=== PATIENT | male | born 1950 | race Caucasian/White ===

== ENCOUNTER 2017-06-04 13:20 | Emergency (ER) | payer OTHER ==
[~2017-06-04] VITALS: Ht 177.8 cm; Wt 111.8 kg
[~2017-06-04 13:20] MED LIST changes: -OMEP20CA9 PO
[2017-06-04 13:28] VITALS: TEMP 36.7; Ht 177.8 cm; Wt 111.8 kg
[2017-06-04] MEDS ORDERED: OMEP20CA9 PO (13:53)
[2017-06-04 14:46] VITALS: BP 129/81; PULSE 75; O2SAT 95
--- NOTE | 2017-06-05 19:14 | EMERGENCY ROOM VISIT NOTE ---
ED Visit Note First contact with patient: 13:34 Chief Complaint: Sewage water exposure. History of Present Illness: Mr. Pisano is a 67-year-old white male who ambulates into the ED complaining of a work related sewage water exposure. Patient reports he works on a [employer]. 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 While working on the drain he reports himself and to other employees were splashed with road sewage. He reports immediately clean the areas that included the right side of his face and wash the area with soap and water after the exposure. 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 I did speak to the patient extensively about the type materials any did not believe that there was blood or human waste in the sewage. Currently he is not having any symptoms. Review of Systems: As noted above in history of present illness. Past Medical History: Hypertension and diabetes; status post sinus and knee surgeries.. Current Medications: Aspirin, Allergies to Medications: Sulfa. Social History: Patient is currently employed; he feels safe in his home environment; he admits to tobacco and alcohol use. Physical Examination: Vital Signs: Date Time Temp Pulse Resp B/P (MAP) Pulse Ox O2 Delivery O2 Flow Rate FiO2 06/04/17 14:46 75 129/81 95 Room Air 06/04/17 13:28 36.7 77 17 130/85 96 Room Air GENERAL: 67-year-old male in no acute distress, nontoxic-appearing, afebrile and hemodynamically stable. NEUROLOGICAL: Awake, alert and oriented to person, place and time. Answering questions appropriately and following commands. Normal gait. Good hand eye coordination. SKIN: Warm, dry and pink. No soft tissue eruptions or trauma noted. HEENT: Atraumatic and normocephalic. PERRLA. Sclera white and conjunctiva pink. No drainage from naris. Oral cavity moist and pink. Pharynx is nonerythematous or edematous. Speech normal. No lymphadenopathy. Trachea midline. No jugular venous distention. THORAX: Lungs sounds are clear to auscultation and equal bilaterally with symmetrical chest wall. ABDOMEN: Flat, soft and nontender. Positive bowel sounds in all quadrants. No guarding, rigidity or organomegaly. EXTREMITIES: Moves all extremities well on command and with purpose. All distal neurovascular statuses are intact and equal bilaterally. ED Course: Patient is assessed as noted above. Patient's medication list was reviewed. Patient's case was reviewed with Dr. Aguilar; he did not feel hepatitis B immunizations were needed at this time but did recommend that I talked to infectious disease department. I contacted Melissa Ross, infectious disease nurse specialist, and she consulted Dr. Tam of infectious disease and they recommended that the patient be immunized against hepatitis A and B; they recommended [facility]; additionally she did report they could start the series but they would have to make an appointment and not be seen for approximately one week. The [facility] was not available in this hospital's pharmacy. I then contacted occupational medicine and spoke with Ms. Lyon who reported she had [facility] available at her office and would be willing to see the patient now and in follow-up. Patient was educated about today's findings and instructed on his treatment plan ; he verbalizes understanding and agreement with this plan. Clinical Impression: Work related injury. Sewage exposure. Disposition: Patient discharged home in stable condition accompanied by male friend; prior to departure he was reassessed and remained pain and symptom-free. Plan: Patient was encouraged to go immediately to the Occupational Medicine office in the [facility] room 302 for further evaluation and care and immunizations.
== END 2017-06-04 15:03 | disposition home or self-care (01) ==
LOC: C.EDB 13:22 → C.EDD 15:03
DX: Z77.098 Contact with and (suspected) exposure to other hazardous, chiefly nonmedicinal, chemicals (principal); Y92.89 Other specified places as the place of occurrence of the external cause; Y99.0 Civilian activity done for income or pay; I10 Essential (primary) hypertension; E11.9 Type 2 diabetes mellitus without complications; F17.200 Nicotine dependence, unspecified, uncomplicated; Z98.890 Other specified postprocedural states; Z79.82 Long term (current) use of aspirin; Z88.5 Allergy status to narcotic agent

== ENCOUNTER → 2017-06-04 | Outpatient (CLI) | payer OTHER ==
[~2017-06-04] MED LIST: ASPI81TA28 PO; GLC/500 PO; LISI-461 PO; LORA-741 PO; MULT-506 PO; OMEP20CA9 PO
== END | disposition home or self-care (01) ==
LOC: C.MNPGOH 15:50 → EDSTATUS 15:57 → C.LAB1850 15:58
PROVIDERS: ATTEND Nurse Practitioner Family
DX: Z77.111 Contact with and (suspected) exposure to water pollution (principal)

== ENCOUNTER → 2018-01-18 | Outpatient (CLI) | payer OTHER ==
[~2018-01-18] MED LIST changes: -LORA-741 PO; +OMEP20CA9 PO
[2018-01-20 09:19] LABS: HEPATITIS A IGM TC 51813E NON-REACTIVE (NON-REACTIVE)
--- NOTE | 2018-01-26 14:03 | CODING QUERY NO DIAGNOSIS ---
: 1950 TREATMENT RENDERED WITHOUT A DIAGNOSIS To promote full compliance with coding requirements relating to patient care, physician participation is requested in all cases of software build engineer uncertainty. Please assist us with providing a diagnosis/symptom for the test(s) below: A diagnosis/symptom was not documented on your Order. A valid diagnosis/symptom is required to bill all insurances. Please remember that we are unable to code a diagnosis of rule out, probable, possible, questionable, or suspected. Tests that require a diagnosis: DOS: 01/18/18 * HEPATITIS A VIRUS IgM DIAGNOSIS: * HEPATITIS A ANTIBODY, TOTAL DIAGNOSIS: * HEPATITIS B AB DIAGNOSIS: Provider Signature: Date: Thank you Sharon Perez Health Information Management Once completed, please kindly fax back to [phone] For questions please call [phone]
== END | disposition home or self-care (01) ==
LOC: C.LABSPEC 13:26
PROVIDERS: ATTEND Nurse Practitioner Family
DX: Z01.89 Encounter for other specified special examinations (principal)